=== PATIENT | male | born 1965 | race Caucasian/White ===

== ENCOUNTER 2020-03-27 22:10 | Emergency (ER) | payer OTHER, SELFPAY ==
[2020-03-27] MEDS ORDERED: diphenhydrAMINE 50 MG/ML VIAL ONE (22:27)
[2020-03-27] MEDS ORDERED: Morphine 10 MG/ML VIAL ONE (22:27)
[2020-03-27] MEDS ORDERED: Ketorolac Tromethamine 30 MG/ML VIAL ONE (22:27)
[2020-03-27 22:37] LABS: #Basophils 0.2 thou/uL (0.0-0.2); #Eosinphils 0.3 thou/uL (0.0-0.7); #Lymphocytes 1.6 thou/uL (1.20-3.40); #Monocytes 0.7 thou/uL (0.11-0.59); #Neutrophils 5.4 thou/uL (1.40-6.50); %Basophils 2.1 % (0.0-1.0); %Eosinophils 3.9 % (0.0-10.0); %Lymphocytes 19.8 % (21.0-51.0); %Monocytes 7.9 % (0.0-10.0); %Neutrophils 66.3 % (42.0-75.0); Hemoglobin 14.8 g/dL (14.0-18.0); Mean Corpuscular HGB CONC 30.9 g/dL (32.0-36.0); Mean Corpuscular Hemoglobin 30.8 pg (27.0-31.0); Mean Corpuscular Volume 99.8 fL (78.0-98.0); Mean Platelet Volume 8.5 fL (7.4-10.4); Platelet Count 307 thou/uL (130-400); RBC Distribution Width 12.4 % (11.5-14.5); Red Blood Cell (RBC) Count 4.79 mill/uL (4.70-6.10); White Blood Cell (WBC) Count 8.2 thou/uL (4.8-10.8)
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
[2020-03-27 22:49] LABS: ALT (SGPT) 24 U/L (8-55); AST (SGOT) 16 U/L (5-34); Albumin 4.7 g/dL (3.5-5.0); Alkaline Phosphatase 72 U/L (40-110); Anion Gap 14 mmol/L (10-20); BUN (Urea Nitrogen) 13 mg/dL (8.4-25.7); Bilirubin, Total 0.4 mg/dL (0.2-1.2); Calc. Creatinine Clearance 0 mL/min (70-130); Calcium 9.4 mg/dL (7.8-10.44); Carbon Dioxide 25 mmol/L (22-29); Chloride 106 mmol/L (98-107); Estimated GFR-MDRD 74; Globulin 2.8 g/dL (2.4-3.5); Glucose 138 mg/dL (70-105); Potassium 3.9 mmol/L (3.5-5.1); Protein, Total 7.5 g/dL (6.0-8.3); Sodium 141 mmol/L (136-145)
[2020-03-27] MEDS ORDERED: Bacitracin 1 PK ONE (22:49)
[2020-03-27] MEDS ORDERED: HYDROcodone/Acetaminophen 5/325 mg Tablet ONE (23:25)
== END 2020-03-27 23:28 | disposition home or self-care (01) ==
LOC: BURERS 22:10
DX: T24.202A Burn of second degree of unspecified site of left lower limb, except ankle and foot, initial encounter (principal); T24.201A Burn of second degree of unspecified site of right lower limb, except ankle and foot, initial encounter; T25.292A Burn of second degree of multiple sites of left ankle and foot, initial encounter; T25.231A Burn of second degree of right toe(s) (nail), initial encounter; T31.0 Burns involving less than 10% of body surface; X08.8XXA Exposure to other specified smoke, fire and flames, initial encounter
CPT/HCPCS: 16025; 71045; 80053; 85025; 94760; 96374; 96375; J1200; J1885; J2270

== ENCOUNTER 2020-03-29 13:39 | Emergency (ER) | payer OTHER ==
[2020-03-29] MEDS ORDERED: Bacitracin 1 PK ONE (14:42)
== END 2020-03-29 15:05 | disposition home or self-care (01) ==
LOC: BURERS 13:39
DX: T25.231D Burn of second degree of right toe(s) (nail), subsequent encounter (principal); T25.222D Burn of second degree of left foot, subsequent encounter; T25.212D Burn of second degree of left ankle, subsequent encounter; T24.202D Burn of second degree of unspecified site of left lower limb, except ankle and foot, subsequent encounter; T24.201D Burn of second degree of unspecified site of right lower limb, except ankle and foot, subsequent encounter; T25.292D Burn of second degree of multiple sites of left ankle and foot, subsequent encounter; T31.0 Burns involving less than 10% of body surface; W40.1XXD Explosion of explosive gases, subsequent encounter
CPT/HCPCS: 99282